=== PATIENT | male | born 1990 | race Caucasian/White ===

== ENCOUNTER 2023-11-16 17:02 | Emergency (ER) | payer BC, SELFPAY ==
[2023-11-16 17:25] VITALS: BP 114/78; PULSE 100; RESP 22; TEMP 36.6; O2SAT 97; BMI 41.8
--- NOTE | 2023-11-16 17:40 | ED.GENADULT ---
HPI - General Adult General Time Seen by Provider: 17:40 <Arelis Vásquez MD - Last Filed: 11/19/23 11:04> Date Seen: 11/16/23 <Arelis Vásquez MD - Last Filed: 11/19/23 11:04> Chief complaint: Extremity Pain/Injury, Lower <Arelis Vásquez MD - Last Filed: 11/19/23 11:04> Stated complaint: Mental health--police referral <Arelis Vásquez MD - Last Filed: 11/19/23 11:04> Time Seen by Provider: 11/16/23 17:40 <Arelis Vásquez MD - Last Filed: 11/19/23 11:04> Source: patient, family, RN notes reviewed, old records reviewed and police <Arelis Vásquez MD - Last Filed: 11/19/23 11:04> Mode of arrival: ambulatory <Arelis Vásquez MD - Last Filed: 11/19/23 11:04> Limitations: no limitations <Arelis Vásquez MD - Last Filed: 11/19/23 11:04> History of Present Illness HPI narrative: This 33-year-old male is brought in by the police, came willingly, for concern of a his left foot. Patient is brought in by police stating he is psychotic but patient is denying any visual or auditory hallucinations. His aunt does provide some of the history per phone call with nursing staff. Mike states he is here for medical evaluation. States he was diagnosed with a blood clot in his right leg on mother's Day, he does show me his bottle of Xarelto 20 mg, states he has been taking it daily. His prescription was from October 20, there were about 4 pills left in the bottle, would coincide with a refill of a 30 day medication. He states he was in [facility] yesterday. He denies any fevers. He reportedly was at a [employer] today and locked his keys in his car. He went in to the facility and asked staff to call the police. Police found him with out any sure to her shoes on. He has a long known history bipolar and schizoaffective disorder. He states he has alcohol syndrome from his mom. He is stating he needs to be hospitalized for his feet, endorses that he has no home now. He was at a boarding lodge in [place] and was kicked out yesterday, his on states it was due to pacing. The on reported that she feels he has spiraled into psychosis after his grandfather 3 weeks ago, patient reportedly drowned. Bread is endorsing chemical free status, states he has been sober for 5 and half years. When ask him what he use use, he states everything. His history lists alcohol abuse in the past. His aunt endorsed that she did not think he was on anything. He states he is not taking any psychiatric medicines in 10 months, tells me it takes 6 months get out of your system. He states that 1 of the medicines he was on made him feel like he was rubber inside. His aunt did tell nursing staff that 1 of the medicines cause some lesions or skin issues that had to be surgically excised. 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 He is specifically asked if he is hearing any voices which he denies, no visual hallucinations, denies any suicidal or homicidal ideation. He states he is here for medical issues, not mental health. He was prescribed an antibiotic yesterday but states he has not picked it up. He states he has been doing a lot a walking, his feet hurt but the left 1 is worse. He states he did not get the antibiotic filled, states it was not sent in. In talking to him, I wonder if he did not want to wait for the antibiotic at the facility. In any event, he was unable to get an antibiotic to start and which is why he is coming here, he states he switched Hospitals. His encounter from yesterday morning at [place] was reviewed and printed out. He was brought to [facility] [place] emergency department for mental health problems, was accompanied by police. He did not come on a transport hold. He did have a social services consult there yesterday, was not felt that he was meeting any criteria to put him on a hold. He had prior inpatient stays at [facility] in March of 2018, [facility] in 2018. He was in [facility] in 2013. He was on a provisional discharge of commitment to [facility] which is where he was kicked out of yesterday. He has been under commitment in 09/16/2013 and 06/03/2017 through [facility]. Through his social services interview yesterday he has past listed diagnoses of schizophrenia, schizoaffective disorder, bipolar disorder. They found him to be no imminent risk for harm to self or others, did not meet criteria for inpatient psychiatric hospitalization or 72 hour emergency psychiatric hold. They did provide resources for crisis, psychiatry and [facility] mental health case management information. He was given a list of agencies within the area within the geography that the patient resided and requested. During his evaluation, was found to have a wound on his left 5th metatarsal with surrounding erythema warmth and induration, there is no active drainage or area of fluctuance. He was recommended to take Bactrim ds 1 tablet twice a day for 7 days. She is encouraged on hygiene. Labs done yesterday show a heparin anti Xa level to be therapeutic at 1.834 once daily dosing he had a basic metabolic panel that was normal with a creatinine of 1.02 and an estimated GFR of greater than 90. He had a hemoglobin normal at 14.1, platelet count mildly up at 333,000, white blood count was 7700 with a normal differential. I last saw him in May of 2017 and he was placed on a psychiatric emergency hold, was transferred to psychiatric care, this was 05/29/2017. His past medical history is significant for nicotine dependence, childhood asthma, history of PE tubes as a child, atrial septal defect repair [facility] on 02/27/2010. He has had repair of left 3rd hammertoe and bunion of his 1st metatarsophalangeal joint in November of 2010. He states he has alcohol syndrome. <Arelis Vásquez MD - Last Filed: 11/19/23 11:04> Related Data Home medications: Home Medications ?Medication ?Instructions ?Recorded ?Confirmed albuterol sulfate 90 mcg/actuation 1 inh inhalation DAILY 11/18/23 11/18/23 aerosol inhaler (Ventolin HFA) rivaroxaban 20 mg tablet (Xarelto) 20 mg PO DAILY 11/18/23 11/18/23 Previous Rx's ?Medication ?Instructions ?Recorded sulfamethoxazole 800 1 tab PO BID #13 tabs 11/16/23 mg-trimethoprim 160 mg tablet (Bactrim DS) <Arelis Vásquez MD - Last Filed: 11/19/23 11:04> Allergies/adverse reactions: Allergies Allergy/AdvReac Type Severity Reaction Status Date / Time No Known Drug Allergies Allergy Verified 11/18/23 04:28 <Arelis Vásquez MD - Last Filed: 11/19/23 11:04> Review of Systems Status of ROS: Reports: 6 or more systems reviewed and unremarkable except as noted in History and below <Arelis Vásquez MD - Last Filed: 11/19/23 11:04> [facility] Medical History: Medical History (Updated 11/18/23 @ 04:59 by Thong Aguirre RN) History of foot fracture ?Z87.81 - Personal history of (healed) traumatic fracture (ICD-10) Bipolar disorder ?F31.9 - Bipolar disorder, unspecified (ICD-10) Schizophrenia ?F20.9 - Schizophrenia, unspecified (ICD-10) 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.8 - Other specified congenital malformations (ICD-10) Atrial septal defect ?Q21.10 - Atrial septal defect, unspecified (ICD-10) Asthma ?J45.909 - Unspecified asthma, uncomplicated (ICD-10) <Arelis Vásquez MD - Last Filed: 11/19/23 11:04> Social History: Social History Smoking Status: Current every day smoker What tobacco products do you use: cigarettes Do you use any of these nicotine containing products: Vaping Products Second hand tobacco smoke exposure: Yes How often do you have a drink containing alcohol: never AUDIT-C Alcohol total score: 0 Non-prescribed substance use: former substance user <Arelis Vásquez MD - Last Filed: 11/19/23 11:04> Exam Const: Vital Signs, click to edit/add: Vital Signs - 24 hr 11/16/23 17:25 Temperature 97.9 F Pulse Rate [Pulse Oximeter] 100 Respiratory Rate 22 Blood Pressure [Ri ght Upper Arm] 114/78 Pulse Oximetry 97 Oxygen Delivery Me thod Room Air Mike is disheveled, up in the room when I come in. He has somewhat of a flat affect but is engaging. Speech is not pressured but it is tangential at times. Denies hallucinations, denies suicidality denies homicidality. He is conversive, speech is not slurred, sounds normal. Pupils are equal round reactive, sclera clear, extraocular muscles intact. He does tell me that he has 14 lids where other people have 3. Neck thick but supple, no adenopathy, no thyromegaly masses or nodules. Lungs are clear, good air entry, no wheezing or crackles. CV regular rate and rhythm, no murmur. Abdomen is soft, nontender, nondistended, no organomegaly. His lower extremities are visualize, his feet are dirty, soles are black in, did come in with black rubber slide type shoes. There is dirt between his toes. His left 4th and 5th toe are erythematous, erythema extends onto the proximal foot. He has some mild about 1+ edema in the feet up to the lower legs. I note no erythema extending onto the legs. Patient was up ambulating barefoot when I came in the room. He notes his right foot is bothering him, feels pain and points to the midfoot, he states it is not normal, it should be over here pointing to the inside of his arch instead of over there, feels lumpy inside. He maybe has some mild edema on the dorsum of the foot but I note no erythema. He has poor hygiene, feet are dirty on the soles/bottom and in between the toes but no open wounds, no erythema on this right foot. When I palpate a note no masses, no pinpoint area of tenderness. He does ask if that the camera in the room, I did review with him that it was indeed a camera, at that time I was not sure if it was on or not. Did review that with him. <Arelis Vásquez MD - Last Filed: 11/19/23 11:04> Vital Signs, click to edit/add: Vital Signs - 24 hr 11/16/23 17:25 Temperature 97.9 F Pulse Rate [Pulse Oximeter] 100 Respiratory Rate 22 Blood Pressure [Ri ght Upper Arm] 114/78 Pulse Oximetry 97 Oxygen Delivery Me thod Room Air <Irineo Espinoza MD - Last Filed: 11/16/23 20:43> Documenting provider has reviewed patient's vital signs: yes <Arelis Vásquez MD - Last Filed: 11/19/23 11:04> Course Course ED Course: This patient certainly has some features that I agree go along with some psychosis or schizoaffective disorder or decompensated bipolar disorder. I do not have any psychiatric services here right now. Patient is not interested in psychiatric care. He is not improving to be sufficiently altered that I think he is meeting criteria for an emergency psychiatric hold. Did discuss with him that we would certainly do blood work and workup is medical issues. He did make a statement that the blood from his arms was different colors on each side. He did want us to draw blood on both sides, I reviewed with him that we typically only draw blood on 1 side or the other, he can help us choose which side he would prefer them to look at. He makes some statements like this with the blood and with the ?14 lids? that obviously do not seem grounded in reality. He certainly is taking his Xarelto and is managing that, seems to be proficiently managing that. We will be x-ray eating both of his feet just to ensure no trauma, do full complement of labs. <Arelis Vásquez MD - Last Filed: 11/19/23 11:04> Reevaluation(s) Time of Reevaluation #1: 18:51 <Arelis Vásquez MD - Last Filed: 11/19/23 11:04> Reevaluation #1: Have discussed with staff that are currently here, all feel that social services really should weigh in on this patient. Again, none of us are finding emergent need for psychiatric placement in his current situation but we all do feel that having him stay overnight until we can have social services work with us in the morning on his disposition is in his best interest. Patient agrees to stay here overnight, does not have any place to go at this point anyway. I will give him a dose of antibiotic, I have reviewed with him that I do not see any acute traumatic change or concerns on his x-rays of his feet but they do need radiology over read. Currently his white blood count is normal. He states he already took his Xarelto for today. I will give him a dose of Bactrim DS for possible left foot cellulitis. He understands that social services will be assisting us for disposition in the morning. We will await all of his labs and the reading of his feet x-rays. Patient seems to be falling asleep while I am in the room with him. Did ask him if he needed anything for sleep and he stated that he did not, that he was good. <Arelis Vásquez MD - Last Filed: 11/19/23 11:04> Time of Reevaluation #2: 20:43 <Irineo Espinoza MD - Last Filed: 11/16/23 20:43> Reevaluation #2: Patient is cooperative agrees to stay for the social service consult in the morning, sign-out from previous ER physician, that he is not holdable at this time. We will wait for social secretary, his vital signs are normal, is currently eating a sandwich. <Irineo Espinoza MD - Last Filed: 11/16/23 20:43> Vital Signs Vital signs: Initial Vital Signs Temperature 97.9 F 11/16/23 17:25 Temperature Source Temporal Artery Scan 11/16/23 17:25 Pulse Rate 100 11/16/23 17:25 Respiratory Rate 22 11/16/23 17:25 Blood Pressure 114/78 11/16/23 17:25 Blood Pressure Mean 90 11/16/23 17:25 Blood Pressure Position Sitting 11/16/23 17:25 Pulse Oximetry 97 11/16/23 17:25 Oxygen Delivery Method Room Air 11/16/23 17:25 Vital Signs Temperature 97.9 F 11/16/23 17:25 Pulse Rate 100 11/16/23 17:25 Respiratory Rate 22 11/16/23 17:25 Blood Pressure 114/78 11/16/23 17:25 Pulse Oximetry 97 11/16/23 17:25 Oxygen Delivery Method Room Air 11/16/23 17:25 Temperature 97.6 F 11/17/23 08:01 Pulse Rate 76 11/17/23 08:01 Respiratory Rate 18 11/17/23 08:01 Blood Pressure 134/75 11/17/23 08:01 Pulse Oximetry 97 11/17/23 08:01 Oxygen Delivery Method Room Air 11/17/23 08:01 <Arelis Vásquez MD - Last Filed: 11/19/23 11:04> Initial Vital Signs Temperature 97.9 F 11/16/23 17:25 Temperature Source Temporal Artery Scan 11/16/23 17:25 Pulse Rate 100 11/16/23 17:25 Respiratory Rate 22 11/16/23 17:25 Blood Pressure 114/78 11/16/23 17:25 Blood Pressure Mean 90 11/16/23 17:25 Blood Pressure Position Sitting 11/16/23 17:25 Pulse Oximetry 97 11/16/23 17:25 Oxygen Delivery Method Room Air 11/16/23 17:25 Vital Signs Temperature 97.9 F 11/16/23 17:25 Pulse Rate 100 11/16/23 17:25 Respiratory Rate 22 11/16/23 17:25 Blood Pressure 114/78 11/16/23 17:25 Pulse Oximetry 97 11/16/23 17:25 Oxygen Delivery Method Room Air 11/16/23 17:25 Temperature 97.6 F 11/17/23 08:01 Pulse Rate 76 11/17/23 08:01 Respiratory Rate 18 11/17/23 08:01 Blood Pressure 134/75 11/17/23 08:01 Pulse Oximetry 97 11/17/23 08:01 Oxygen Delivery Method Room Air 11/17/23 08:01 <Irineo Espinoza MD - Last Filed: 11/16/23 20:43> Medications Administered Medications: Discontinued Medications Generic Name Dose Route Start Last Admin Trade Name Freq PRN Reason Stop Dose Admin Nicotine 1 patch 11/16/23 21:00 11/16/23 22:20 Nicotine 21 Mg Patch TRANSDERMA 1 patch Q24H JAVIER Administration Nicotine Polacrilex 2 mg 11/16/23 20:47 11/17/23 04:38 Nicotine 2 Mg Gum BUCCAL 2 mg Q1H PRN Administration <Arelis Vásquez MD - Last Filed: 11/19/23 11:04> Discontinued Medications Generic Name Dose Route Start Last Admin Trade Name Freq PRN Reason Stop Dose Admin Nicotine 1 patch 11/16/23 21:00 11/16/23 22:20 Nicotine 21 Mg Patch TRANSDERMA 1 patch Q24H JAVIER Administration Nicotine Polacrilex 2 mg 11/16/23 20:47 11/17/23 04:38 Nicotine 2 Mg Gum BUCCAL 2 mg Q1H PRN Administration <Irineo Espinoza MD - Last Filed: 11/16/23 20:43> Medical Decision Making Lab Data Lab results reviewed: Yes I reviewed the patient's lab results <Arelis Vásquez MD - Last Filed: 11/19/23 11:04> Labs: Lab Results 11/16/23 Range/Units 18:05 WBC 9.17 (4.50-11.00) K/uL RBC 4.99 (4.30-5.90) m/uL Hgb 14.0 (13.5-17.5) gm/dL Hct 43.3 (37.0-53.0) % MCV 87 (80-100) fL MCH 28 (26-34) pg MCHC 32 (32-36) gm/dL RDW Coeff of Ila 14.6 (11.5-15.5) % Plt Count 313 (140-440) K/uL Neut % (Auto) 65.9 (42.0-72.0) % Lymph % (Auto) 21.3 (20-44) % [place] % (Auto) 9.1 (0.0-11.0) % Eos % (Auto) 2.2 (0.0-7.0) % Baso % (Auto) 0.7 (0.0-3.0) % Neut # (Auto) 6.06 (1.7-7.0) K/uL Lymph # (Auto) 1.95 (0.90-2.90) K/uL [place] # (Auto) 0.80 (0.00-0.90) K/UL Eos # (Auto) 0.20 (0.00-0.50) K/uL Baso # (Auto) 0.06 (0.00-0.30) K/uL Abs Immat Gran (auto) 0.07 (0.00-0.30) K/uL Imm/Tot Granulo (auto) 0.8 % Sodium 138 (135-149) mmol/L Potassium 3.5 L (3.6-5.1) mmol/L Chloride 103 (96-114) mmol/L Carbon Dioxide 27 (20-32) mmol/L Anion Gap 8 (7-15) mEq/L BUN 14 (5-24) mg/dL Creatinine 1.1 (0.5-1.5) mg/dL Estimated Creat Clear 103.63 Estimated GFR 92 ml/min Glucose 103 (60-115) mg/dL Lactate 1.0 (0.5-1.9) mmol/L Calcium 9.3 (8.4-10.6) mg/dL Total Bilirubin 1.0 (0.1-1.5) mg/dL AST 35 (12-35) U/L ALT 50 (4-50) U/L Alkaline Phosphatase 87 (40-150) U/L C-Reactive Protein 2.0 H (0.5-1.0) mg/dL Total Protein 7.6 (6.0-8.3) g/dL Albumin 4.7 (3.3-5.0) g/dL Procalcitonin 0.05 (<0.50) ng/mL Salicylates < 1.0 L (1.0-10) mg/dL Acetaminophen < 10.0 L (10.0-30.0) ug/mL Ethyl Alcohol < 0.01 L (0.01-0.03) % <Arelis Vásquez MD - Last Filed: 11/19/23 11:04> Lab Results 11/16/23 Range/Units 18:05 WBC 9.17 (4.50-11.00) K/uL RBC 4.99 (4.30-5.90) m/uL Hgb 14.0 (13.5-17.5) gm/dL Hct 43.3 (37.0-53.0) % MCV 87 (80-100) fL MCH 28 (26-34) pg MCHC 32 (32-36) gm/dL RDW Coeff of Ila 14.6 (11.5-15.5) % Plt Count 313 (140-440) K/uL Neut % (Auto) 65.9 (42.0-72.0) % Lymph % (Auto) 21.3 (20-44) % [place] % (Auto) 9.1 (0.0-11.0) % Eos % (Auto) 2.2 (0.0-7.0) % Baso % (Auto) 0.7 (0.0-3.0) % Neut # (Auto) 6.06 (1.7-7.0) K/uL Lymph # (Auto) 1.95 (0.90-2.90) K/uL [place] # (Auto) 0.80 (0.00-0.90) K/UL Eos # (Auto) 0.20 (0.00-0.50) K/uL Baso # (Auto) 0.06 (0.00-0.30) K/uL Abs Immat Gran (auto) 0.07 (0.00-0.30) K/uL Imm/Tot Granulo (auto) 0.8 % Sodium 138 (135-149) mmol/L Potassium 3.5 L (3.6-5.1) mmol/L Chloride 103 (96-114) mmol/L Carbon Dioxide 27 (20-32) mmol/L Anion Gap 8 (7-15) mEq/L BUN 14 (5-24) mg/dL Creatinine 1.1 (0.5-1.5) mg/dL Estimated Creat Clear 103.63 Estimated GFR 92 ml/min Glucose 103 (60-115) mg/dL Lactate 1.0 (0.5-1.9) mmol/L Calcium 9.3 (8.4-10.6) mg/dL Total Bilirubin 1.0 (0.1-1.5) mg/dL AST 35 (12-35) U/L ALT 50 (4-50) U/L Alkaline Phosphatase 87 (40-150) U/L C-Reactive Protein 2.0 H (0.5-1.0) mg/dL Total Protein 7.6 (6.0-8.3) g/dL Albumin 4.7 (3.3-5.0) g/dL Procalcitonin 0.05 (<0.50) ng/mL Salicylates < 1.0 L (1.0-10) mg/dL Acetaminophen < 10.0 L (10.0-30.0) ug/mL Ethyl Alcohol < 0.01 L (0.01-0.03) % <Irineo Espinoza MD - Last Filed: 11/16/23 20:43> Imaging Data XR feet: Attestation: I have reviewed the pertinent imaging results. <Arelis Vásquez MD - Last Filed: 11/19/23 11:04> Radiologist's impression: Patient: MIKE ABAD Facility:?[facility] Patient ID:?[id number] Site Patient ID:?[id number]. Site :?[id number] Study:?XRay-Extremity Left 3v-11/16/2023 6:16:41 PM Ordering Physician:Laith Infante Final Report: INDICATION: Left foot pain, history of cellulitis. TECHNIQUE: Left foot radiographs, 3 views. COMPARISON: Left foot radiographs 11/21/2010 FINDINGS: Postsurgical changes of the distal 1st metatarsal. No suspicious osseous erosions. No acute fractures or dislocation. The joint spaces are preserved. The Lisfranc joint is unremarkable. Calcaneus is intact. Mild nonspecific soft tissue edema. No other radiopaque foreign bodies. IMPRESSION: 1. Mild nonspecific soft tissue swelling. No suspicious osseous erosions. 2. No acute fractures or dislocation. Dictated by Edison Ervin MD @ 11/16/2023 6:50:55 PM (Electronic Signature) Patient: MIKE ABAD Facility:?[facility] Patient ID:?[id number] Site Patient ID:?[id number]. Site :?[id number] Study:?XRay-Extremity Right 3v-11/16/2023 6:35:07 PM Ordering Physician:Laith Infante Final Report: Indication: Pain, no trauma. Technique: Right foot, 3 views. Comparison: None. Findings/Impression: Bones: Alignment is normal. No displaced fractures or bone lesions. Joint spaces: Unremarkable. Soft tissues: Unremarkable. Dictated by Edwin Tanner MD @ 11/16/2023 7:23:11 PM (Electronic Signature) <Arelis Vásquez MD - Last Filed: 11/19/23 11:04> Discharge Plan Discharge Clinical Impression: Cellulitis of foot, left, History of deep vein thrombosis (DVT) of lower extremity <Arelis Vásquez MD - Last Filed: 11/19/23 11:04> Instructions: Cellulitis (ED) <Arelis Vásquez MD - Last Filed: 11/19/23 11:04> Additional Instructions: Continue Bactrim for your foot, prescription sent in. Recommend making sure you washer feet daily, elevate your feet to help decrease pain and swelling, can help the infection in the foot decrease as well. If there are further concerns, feel that the infection is worsening, please seek re-evaluation per <Arelis Vásquez MD - Last Filed: 11/19/23 11:04> Prescriptions: New sulfamethoxazole-trimethoprim [Bactrim DS] 800-160 mg tablet 1 tab PO BID Qty: 13 0RF No Action albuterol sulfate [Ventolin HFA] 90 mcg/actuation HFA aerosol inhaler 1 inh inhalation DAILY Xarelto 20 mg tablet 20 mg PO DAILY <Arelis Vásquez MD - Last Filed: 11/19/23 11:04> Follow Up/Referrals: Provider,Not a Local [Primary Care Provider] - <Arelis Vásquez MD - Last Filed: 11/19/23 11:04>
--- NOTE | 2023-11-16 17:54 | CRLHL7_ITS ---
For Patients: As a result of the Century Cures Act, medical imaging exams and procedure reports are released immediately into your electronic medical record. You may view this report before your referring provider. If you have questions, please contact your health care provider. INDICATION: Left foot pain, history of cellulitis. TECHNIQUE: Left foot radiographs, 3 views. COMPARISON: Left foot radiographs 11/21/2010 FINDINGS: Postsurgical changes of the distal 1st metatarsal. No suspicious osseous erosions. No acute fractures or dislocation. The joint spaces are preserved. The Lisfranc joint is unremarkable. Calcaneus is intact. Mild nonspecific soft tissue edema. No other radiopaque foreign bodies. IMPRESSION: 1. Mild nonspecific soft tissue swelling. No suspicious osseous erosions. 2. No acute fractures or dislocation. Dictated by Edison Ervin MD @ 11/16/2023 6:50:55 PM (Electronically Signed)
[2023-11-16 18:12] LABS: Basophils Absolute Auto 0.06 K/uL (0.00-0.30); Basophils Percent Auto 0.7 % (0.0-3.0); Eosinophils Percent Auto 2.2 % (0.0-7.0); Hematocrit 43.3 % (37.0-53.0); Immature Granulocytes Abs Auto 0.07 K/uL (0.00-0.30); Immature Granulocytes Pct Auto 0.8 %; Lymphocytes Absolute Auto 1.95 K/uL (0.90-2.90); Lymphocytes Percent Auto 21.3 % (20-44); Mean Corpuscular HGB Conc 32 gm/dL (32-36); Mean Corpuscular Hemoglobin 28 pg (26-34); Mean Corpuscular Volume 87 fL (80-100); Monocytes Percent Auto 9.1 % (0.0-11.0); Neutrophils Absolute Auto 6.06 K/uL (1.7-7.0); Neutrophils Percent Auto 65.9 % (42.0-72.0); Platelet Count* 313 K/uL (140-440); RDW Coefficient of Variation % 14.6 % (11.5-15.5); Red Blood Count 4.99 m/uL (4.30-5.90); White Blood Count* 9.17 K/uL (4.50-11.00)
[2023-11-16 18:15] LABS: Slide Review Reflex No
--- NOTE | 2023-11-16 18:24 | CRLHL7_ITS ---
For Patients: As a result of the Century Cures Act, medical imaging exams and procedure reports are released immediately into your electronic medical record. You may view this report before your referring provider. If you have questions, please contact your health care provider. Indication: Pain, no trauma. Technique: Right foot, 3 views. Comparison: None. Findings/Impression: Bones: Alignment is normal. No displaced fractures or bone lesions. Joint spaces: Unremarkable. Soft tissues: Unremarkable. Dictated by Edwin Tanner MD @ 11/16/2023 7:23:11 PM (Electronically Signed)
[2023-11-16 18:28] LABS: Albumin* 4.7 g/dL (3.3-5.0); Chloride* 103 mmol/L (96-114); Sodium* 138 mmol/L (135-149)
[2023-11-16 18:29] LABS: Potassium* 3.5 mmol/L (3.6-5.1)
[2023-11-16 18:30] LABS: Creatinine* 1.1 mg/dL (0.5-1.5); Est. Creatinine Clearance* 103.63; Estimated Glomerular Filt Rate 92 ml/min
[2023-11-16 18:31] LABS: Alanine Aminotransferase* 50 U/L (4-50); Alkaline Phosphatase* 87 U/L (40-150); Anion Gap 8 mEq/L (7-15); Aspartate Amino Transferase* 35 U/L (12-35); Blood Urea Nitrogen* 14 mg/dL (5-24); Carbon Dioxide* 27 mmol/L (20-32); Glucose* 103 mg/dL (60-115); Total Protein* 7.6 g/dL (6.0-8.3)
[2023-11-16 18:32] LABS: Calcium* 9.3 mg/dL (8.4-10.6)
[2023-11-16 18:41] LABS: Acetaminophen* < 10.0 ug/mL (10.0-30.0); Ethanol* < 0.01 % (0.01-0.03); Salicylate* < 1.0 mg/dL (1.0-10)
[2023-11-16 18:48] LABS: Procalcitonin* 0.05 ng/mL (<0.50)
--- NOTE | 2023-11-16 20:21 | ED.NURSE ---
Pt came out of his room and asked if he could use the restroom. Pt went to the bathroom and then asked this nurse if he could have food. Pt was provided 2 sandwiches and also a coke to drink. Pt had no further complaints/questions for this nurse. Pt was asked if he would like a warm blanket and he declined at this time.
--- NOTE | 2023-11-16 22:11 | ED.NURSE ---
Pt sleeping, Nicotine patch and gum held.
[2023-11-16] MEDS: NICOTINE 2 MG GUM BUCCAL (22:20)
[2023-11-16] MEDS: NICOTINE 21 MG PATCH 1 PATCH TRANSDERMA (22:20)
--- NOTE | 2023-11-16 22:21 | ED.NURSE ---
pt woke up to use restroom. Pt given Nicotine patch and gum
--- NOTE | 2023-11-17 03:17 | ED.NURSE ---
pt up to use restroom.
--- NOTE | 2023-11-17 04:37 | ED.NURSE ---
pt awake, given water per request.
[2023-11-17] MEDS: NICOTINE 2 MG GUM BUCCAL (04:38)
[2023-11-17 05:16] VITALS: BP 120/68; PULSE 88; RESP 20; O2SAT 99
[2023-11-17 08:01] VITALS: BP 134/75; PULSE 76; RESP 18; TEMP 36.4; O2SAT 97
--- NOTE | 2023-11-17 10:29 | PC.SOCIAL ---
Addendum entered by DREW AyonSW 11/17/23 10:39: Received call back from Jeimy at [facility], stating the [facility] has been involved with this patient in the past but clarifying that there is no commitment at this time and pot is his own decision maker. gum worker to follow up as needed. Original Note: Social work: At 9:30am, today, called [facility] and left message with Adult Commitment worker, Jeimy [phone], requesting call back to discuss what pt's current committment status is with [facility] and if pt is able to make decisions on discharge. Awaiting call back. Called another phone number at [facility] [employer] [phone] and spoke with staff who confirmed pt is on a commitment with [facility] and that the worker, Jeimy, had received my message, was working on a plan, and would get back to me soon. Called again at 10:25 and left another message with Jeimy. and awaiting call back.
--- NOTE | 2023-11-17 11:28 | PC.SOCIAL ---
Social work: Per MD request, attempted to meet with pt regarding d/c plan and community resources. Pt was not interested in talking to social service coordinator but stated he would take a packet with resources at discharge. quarry worker provided a written list of community and statewide resources for housing, financial assistance, food support, mental health and medication assistance and left this list with patient's written discharge information to be provided to him at discharge. Pt is aware social service coordinator is available if he has any questions or further need for resources.
== END 2023-11-17 11:40 | disposition short-term general hospital (02) ==
PROVIDERS: Emergency Provider Family Medicine
DX: L03.116 Cellulitis of left lower limb (principal); F99 Mental disorder, not otherwise specified
CPT/HCPCS: 36415; 73630; 80053; 80143; 80179; 82077; 83605; 84145; 85025; 86140; 99284; S4990

== ENCOUNTER 2023-11-18 03:50 | Emergency (ER) | payer BC, SELFPAY ==
[2023-11-18 04:24] VITALS: BP 148/70; PULSE 81; RESP 20; TEMP 36.7; O2SAT 99; BMI 36.2
--- NOTE | 2023-11-18 04:24 | ED_ITS ---
HPI - General Adult General Date Seen: 11/18/23 Chief complaint: Unspecified Complaint, Adult Stated complaint: dying from blood clot Time Seen by Provider: 11/18/23 04:29 Source: patient Mode of arrival: ambulatory History of Present Illness HPI narrative: Patient is a 33-year-old male with a history of schizophrenia who came in due to claiming he is dying because he has a blood clot in his legs. He was seen here yesterday for similar thing. In short he had a blood clot back in July of 2023 and has been taking Xarelto since then. He did bring his pill bottle yesterday and appears like he is taking the medication appropriately. Was in [place] ER 2 days ago for similar issues. Both yesterday and 2 days ago he was not deemed holdable and patient refused inpatient psychiatric treatment. He has been admi tted for a few different inpatient psych stays with the most recent being 2018. Was kicked out of [facility] 2 days ago for unknown reason. When a provider esterase about who the patient's aunt she states she not believe he was on any illicit drugs. He does states he has not been taking his medication for several years. Yesterday social work was able to contact the [facility] who states that been involved in the patient in the past but there is no clinic minute at this time and he is own decision maker. Difficult to get patient's history right now as he is refusing to speak to me when only speak to the nursing staff. Does tell me he did not picker tender his antibiotic prescription that was sent yesterday. States he does not believe the blood thinner is helping and his previous blood clot is going to kill him. When asked what is worse compared to yesterday when he was discharged she states everything. Will not elaborate. Related Data Home Medications ?Medication ?Instructions ?Recorded ?Confirmed albuterol sulfate 90 mcg/actuation 1 inh inhalation DAILY 11/18/23 11/18/23 aerosol inhaler (Ventolin HFA) rivaroxaban 20 mg tablet (Xarelto) 20 mg PO DAILY 11/18/23 11/18/23 Previous Rx's ?Medication ?Instructions ?Recorded sulfamethoxazole 800 1 tab PO BID #13 tabs 11/16/23 mg-trimethoprim 160 mg tablet (Bactrim DS) Allergies Allergy/AdvReac Type Severity Reaction Status Date / Time No Known Drug Allergies Allergy Verified 11/18/23 04:28 Review of Systems Narrative: Difficult to assess as patient is refusing to answer questions from me [facility] Medical History (Updated 11/18/23 @ 04:59 by Thong Aguirre RN) History of foot fracture ?Z87.81 - Personal history of (healed) traumatic fracture (ICD-10) Bipolar disorder ?F31.9 - Bipolar disorder, unspecified (ICD-10) Schizophrenia ?F20.9 - Schizophrenia, unspecified (ICD-10) 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) ?Q89.8 - Other specified congenital malformations (ICD-10) Atrial septal defect ?Q21.10 - Atrial septal defect, unspecified (ICD-10) Asthma ?J45.909 - Unspecified asthma, uncomplicated (ICD-10) Social History Smoking Status: Current every day smoker What tobacco products do you use: cigarettes Do you use any of these nicotine containing products: Vaping Products Second hand tobacco smoke exposure: Yes How often do you have a drink containing alcohol: never AUDIT-C Alcohol total score: 0 Non-prescribed substance use: former substance user Exam Narrative: Exam Narrative: Const: Well-nourished, Well-developed, in no distress Eyes: PERRL, no conjunctival injection, and symmetrical lids HENT: Atraumatic external nose and ears. Moist mucous membranes. Neck: Symmetric, trachea midline, No thyromegaly. CVS: RRR, No murmurs or gallops. Extremities: No lower extremity edema, Peripheral pulses 2+ and equal in all extremities RESP: Unlabored respiratory effort. Clear to auscultation bilaterally. GI: Nontender/Nondistended, No rebound or guarding. MSK:Extremities w/o deformity, Normal Active ROM Skin: Warm, Dry. No rashes or lesions. Neuro: Normal Muscle tone, No focal neurological deficits. Psych: Awake, Alert, & Oriented x3. Appropriate mood and affect. Const: Vital Signs, click to edit/add: Vital Signs - 24 hr 11/18/23 04:24 11/18/23 05:01 Temperature 98.1 F 98.1 F Pulse Rate [Right Pulse Oximeter] 81 79 Respiratory Rate 20 20 Blood Pressure [Ri ght Upper Arm] 148/70 H 135/68 Pulse Oximetry 99 99 Oxygen Delivery Me thod Room Air Room Air Course Vital Signs Vital signs: Initial Vital Signs Temperature 98.1 F 11/18/23 04:24 Temperature Source Temporal Artery Scan 11/18/23 04:24 Pulse Rate 81 11/18/23 04:24 Respiratory Rate 20 11/18/23 04:24 Blood Pressure 148/70 H 11/18/23 04:24 Blood Pressure Mean 96 11/18/23 04:24 Blood Pressure Position Sitting 11/18/23 04:24 Pulse Oximetry 99 11/18/23 04:24 Oxygen Delivery Method Room Air 11/18/23 04:24 Vital Signs Temperature 98.1 F 11/18/23 04:24 Pulse Rate 81 11/18/23 04:24 Respiratory Rate 20 11/18/23 04:24 Blood Pressure 148/70 H 11/18/23 04:24 Pulse Oximetry 99 11/18/23 04:24 Oxygen Delivery Method Room Air 11/18/23 04:24 Temperature 98.1 F 11/18/23 05:01 Pulse Rate 79 11/18/23 05:01 Respiratory Rate 20 11/18/23 05:01 Blood Pressure 135/68 11/18/23 05:01 Pulse Oximetry 99 11/18/23 05:01 Oxygen Delivery Method Room Air 11/18/23 05:01 Medical Decision Making MDM Narrative Medical decision making narrative: Patient is a 33-year-old male presenting to emergency department for concerns about blood clot in his legs. There is no lower extremity edema noted on my exam and he is already on Xarelto a with labs done recently showing he is at therapeutic level and based on his most the recent refill number of pills he has left does appear like he is taking the medication appropriately. I find it very unlikely he has a blood clot at this time we do not believe ultrasounds would be beneficial. He was prescribed Bactrim for possible cellulitis infection of his feet but of note these feet do not look infected in my opinion and x-rays done yesterday showed no concerning findings. Last 2 times he was seen in the emergency department both here in [place] he is refusing all psychiatric services. He was given information for outpatient but is not appear like he is following up with them. At this time though he does not appear to be danger to himself or others and I would still do not believe he is meeting criteria to be on a hold. Due to that the patient will be discharged. Of note the patient arrived he was asking to take a shower and for food. I believe this is a big part of why he came in today. After discharge took him over an hour to leave any change his altered multiple times and use the bathroom multiple times in that time frame. Nurses have told him several times he has to leave and he kept replied that he is getting packed up. He then finally left when nursing staff told him he cannot stay any longer. Did not argue at that time and left quietly. Discharge Plan Discharge Clinical Impression: Leg pain Qualifiers: Laterality: bilateral Qualified Code(s): M79.604 - Pain in right leg Patient Disposition: Home, Self-Care Condition: Stable Instructions: Leg Pain (ED) Additional Instructions: I recommend setting up outpatient psychiatric services. Your prescribed Bactrim for your feet and I have recommended picking this up. Also recommend you clean your feet daily. Prescriptions: No Action sulfamethoxazole-trimethoprim [Bactrim DS] 800-160 mg tablet 1 tab PO BID Qty: 13 0RF albuterol sulfate [Ventolin HFA] 90 mcg/actuation HFA aerosol inhaler 1 inh inhalation DAILY Xarelto 20 mg tablet 20 mg PO DAILY Follow Up/Referrals: Provider,Not a Local [Primary Care Provider] - Stand Alone Forms: [employer] Info Instructions
[2023-11-18 05:01] VITALS: BP 135/68; PULSE 79; RESP 20; TEMP 36.7; O2SAT 99
[2023-11-18 06:17] VITALS: BP 135/68; PULSE 79; RESP 20; TEMP 36.7
--- NOTE | 2023-11-18 16:31 | ED.NURSE ---
pt called in asking for a refill of his blood thinner. underwriter looked up pt chart and asked pt if our provider gave the pt the original? I informed the pt that he was more than welcome to be seen in the ER today but usually only the provider that gave the original RX. is authorized to give a refill. pt ended the call abruptly.
--- NOTE | 2023-11-20 13:59 | PC.SOCIAL ---
Social work: Received call from Debra Haddad [facility], requesting information from the ED visits of pt be sent to her as there is an open case on this patient. Secure emailed MD notes to Kathy as requested.
== END 2023-11-18 06:17 | disposition home or self-care (01) ==
PROVIDERS: Emergency Provider Student in an Organized Health Care Education/Training Program
DX: M79.604 Pain in right leg (principal)
CPT/HCPCS: 99282; 99283